=== PATIENT | female | born 1990 | race Caucasian/White ===

== ENCOUNTER → 2018-04-14 | Outpatient (CLI) | payer BC, MEDICAID | LOC: M SMT 08:06 | DX: Z13.79 Encounter for other screening for genetic and chromosomal anomalies (principal) | CPT/HCPCS: 36415 ==

== ENCOUNTER → 2018-05-21 | Outpatient (CLI) | payer BC ==
[2018-05-21 17:28] LABS: HEMATOCRIT 33.1 % (36.0-47.0); MEAN CORPUSCULAR HGB CONC 33.2 g/dl (32.0-36.5); MEAN CORPUSCULAR VOLUME 90.2 fl (80.0-96.0); PLATELET COUNT, AUTOMATED 221 10^3/uL (150-450); RED BLOOD COUNT 3.67 10^6/uL (4.00-5.40); RED CELL DISTRIBUTION WIDTH 13.2 % (11.5-14.5); WHITE BLOOD COUNT 14.3 10^3/uL (4.0-10.0)
[2018-05-21 18:00] LABS: GLUCOSE CHALLENGE TEST 1 HOUR 115 MG/DL (LESS THAN 140)
[2018-05-22 09:01] LABS: TYPE AND SCREEN 1 1
== END ==
LOC: M SMT 13:09
DX: Z36.89 Encounter for other specified antenatal screening (principal); Z3A.00 Weeks of gestation of pregnancy not specified
CPT/HCPCS: 82950

== ENCOUNTER → 2018-07-17 | Outpatient (REF) | payer BC | LOC: M LAB REF 12:56 | DX: Z34.83 Encounter for supervision of other normal pregnancy, third trimester (principal) | CPT/HCPCS: 87086 ==

== ENCOUNTER 2018-08-12 10:19 | Inpatient (IN) | payer BC ==
[2018-08-12] MEDS: LACTATED RINGER'S 1000 ML IV (10:30)
[2018-08-12 11:03] LABS: HEMOGLOBIN 11.2 g/dl (12.0-15.5); MEAN CORPUSCULAR HEMOGLOBIN 25.2 pg (27.0-33.0); MEAN CORPUSCULAR VOLUME 78.7 fl (80.0-96.0); PLATELET COUNT, AUTOMATED 289 10^3/uL (150-450); RED BLOOD COUNT 4.45 10^6/uL (4.00-5.40); RED CELL DISTRIBUTION WIDTH 15.2 % (11.5-14.5); WHITE BLOOD COUNT 17.1 10^3/uL (4.0-10.0)
[2018-08-12] MEDS ORDERED: FENTANYL 2MCG/ML ROPIVACAINE 0.2% IN 0.9% NACL 200ML IVBAG As Ordered (11:32)
[2018-08-12] MEDS: LR 1,000 ML IV (11:46)
[2018-08-12] MEDS ORDERED: OXYTOCIN 30 UNITS IN 0.9% NaCl 500ML IV BAG (J2590) As Ordered (15:49)
[2018-08-12] MEDS: OXYTOCIN DRIP 30 UNITS in APPROPRIATE DILUENT 1 EA IV (17:15)
[2018-08-12 17:27] LABS: CORD GAS ABE A -5.6; CORD GAS HCO3 A 22.7 MEQ/L; CORD GAS O2 SAT A 29.8 %; CORD GAS PCO2 A 55.8 mmHg; CORD GAS PH A 7.227 UNITS; CORD GAS PO2 A 18.3 mmHg; CORD GAS SBC A 18.4 MEQ/L; CORD GAS TCO2 A 24.4 MEQ/L
[2018-08-12 17:28] LABS: CORD GAS ABE V -5.1; CORD GAS HCO3 V 20.6 MEQ/L; CORD GAS O2 SAT V 53.7 %; CORD GAS PCO2 V 40.6 mmHg; CORD GAS PH V 7.323 UNITS; CORD GAS PO2 V 25.9 mmHg; CORD GAS SBC V 19.3 MEQ/L; CORD GAS TCO2 V 21.8 MEQ/L
[2018-08-12] MEDS ORDERED: MOM 30ML SUSPENSION UDC PO (17:45)
[2018-08-12] MEDS ORDERED: ACETAMINOPHEN 500 MG TAB PO (17:45)
[2018-08-12] MEDS ORDERED: METHYLERGONOVINE MALEATE 0.2 MG TAB PO (17:45)
[2018-08-12] MEDS ORDERED: ANUSOL HC CREAM 30GM TOP (17:45)
[2018-08-12] MEDS ORDERED: ONDANSETRON 4MG/2ML VIAL (J2405) IV (19:00)
[2018-08-12] MEDS ORDERED: ePHEDrine SULFATE 25 MG/5 ML(5MG/ML) SYRINGE IV (19:00)
[2018-08-12] MEDS ORDERED: EPIDURAL/PCA KEYS XX (19:00)
[2018-08-12] MEDS ORDERED: diphenhydrAMINE INJ 50MG/ML VIAL (J1200) IV (19:00)
[2018-08-12] MEDS ORDERED: NALOXONE INJ 0.4 MG/1 ML VIAL (J2310) IV (19:00)
[2018-08-12] MEDS: FENTANYL/ROPIVACAINE/NACL BAG 200 ML EPIDURAL (19:00)
[2018-08-12] MEDS ORDERED: REFRIGERATOR IV KEYS XX (19:00)
[2018-08-12] MEDS ORDERED: LACTATED RINGER'S 1000 ML IV (19:00)
[2018-08-12] MEDS ORDERED: EPIDURAL COMMENT XX (19:00)
[2018-08-12] MEDS: DIBUCAINE 1% OINTMENT 30GM TOP (21:04)
[2018-08-12] MEDS: IBUPROFEN 800 MG TAB PO (21:04)
[2018-08-13] MEDS: PRENATAL VITAMINS CHEWABLE TABLET PO (08:23)
[2018-08-13] MEDS: IBUPROFEN 800 MG TAB PO (09:41)
[2018-08-13 10:31] LABS: FETAL SCREEN PROF. 1 1
[2018-08-13] MEDS: RHOGAM 300 MCG (1500 IU) INJ (J2790) IM (11:42)
[2018-08-13] MEDS: DOCUSATE SODIUM 100 MG CAP PO (20:59)
[2018-08-14] MEDS: IBUPROFEN 800 MG TAB PO (05:00)
[2018-08-14] MEDS: PRENATAL VITAMINS CHEWABLE TABLET PO (08:13)
[2018-08-14] MEDS: MEASLES,MUMPS,RUBELLA VACCINE INJ (MMR-II) (90707) SC (11:24)
== END 2018-08-14 11:40 | disposition home or self-care (01) | DRG 560 ==
LOC: M LDI 10:19 → M OBS 19:28
PROVIDERS: Obstetrics & Gynecology
PROC: 10E0XZZ Delivery of Products of Conception, External Approach (ICD-10-PCS; principal; 2018-08-12)
PROC: 0KQM0ZZ Repair Perineum Muscle, Open Approach (ICD-10-PCS; 2018-08-12)
PROC: 10907ZC Drainage of Amniotic Fluid, Therapeutic from Products of Conception, Via Natural or Artificial Opening (ICD-10-PCS; 2018-08-12)
DX: O70.1 Second degree perineal laceration during delivery (principal); O77.0 Labor and delivery complicated by meconium in amniotic fluid; Z37.0 Single live birth; Z3A.39 39 weeks gestation of pregnancy; O69.82X0 Labor and delivery complicated by other cord entanglement, without compression, not applicable or unspecified

== ENCOUNTER → 2018-09-26 | Outpatient (CLI) | payer BC ==
[~2018-09-26] MED LIST: IBUP-1114 PO; MAPA500T2 PO; PRENTAB9 PO
--- NOTE | 2018-09-26 13:08 | REP ---
Focused left breast sonography: History: Solitary cyst left breast. Increase in size during nursing. No comparison imaging. Findings: Scanning through the left breast at the region of 2 o'clock palpable lump demonstrates a cluster of cysts with overall dimension of 3.8 x 3.2 x 2.4 cm. There is enhanced through transmission. No significant solid component is seen. The patient reports that this has been palpable since age 20 to 21 with some increase in size. Impression: Benign appearing cluster of cysts with an aggregate dimension of 3.8 cm in the 2 o'clock position of the left breast. BIRADS category 3 probably benign findings. Recommend follow up sonography after is finished or in 6 months. Electronically Signed by Fernando Díaz MD 09/26/2018 04:37 P
== END ==
LOC: M RAD 12:06
PROVIDERS: ATTEND Advanced Practice Midwife
DX: N63.20 Unspecified lump in the left breast, unspecified quadrant (principal)

== ENCOUNTER → 2019-11-19 | Outpatient (CLI) | payer OTHER, MEDICAID ==
--- NOTE | 2019-11-19 12:03 | REP ---
FOCUSED LEFT BREAST SONOGRAPHY: HISTORY: Left breast cyst. Palpable lump upper outer quadrant left breast. Comparison sonography is from September 26, 2018. This showed a 3.8 x 3.2 x 2.4 cm clustered microcyst lesion at 2-o'clock position in the left breast. At that time, history was given that the lesion had enlarged during . SONOGRAPHIC FINDINGS: Today's sonography in the 2-o'clock position, 2 cm from the nipple, demonstrates a 1.9 x 0.9 x 1.3 cm area of small microcysts in a grouping forming an oval-shaped lesion. The individual cysts are somewhat smaller, and the lesion is quite a bit smaller in overall dimension but otherwise appears morphologically similar. It is felt to be the same lesion, regressed in size since the September 26, 2018 study. No other sonographic finding. IMPRESSION: Oval-shaped subdermal benign-appearing clustered microcyst seen 1.3 cm in greatest diameter, previously 3.8 cm in diameter. BI-RADS category 2, benign findings. Clinical followup is advised.
== END ==
LOC: M WHC 09:50
PROVIDERS: ATTEND Advanced Practice Midwife
DX: N60.02 Solitary cyst of left breast (principal)

== ENCOUNTER → 2020-03-30 | Outpatient (CLI) | payer OTHER ==
[2020-03-30 09:47] VITALS: BP 122/70
--- NOTE | 2020-03-30 14:19 | REP ---
ULTRASOUND GUIDANCE FOR LEFT BREAST BIOPSY: Sonographic guidance was provided for Dr. Mendez who performed ultrasound guided biopsy of a complex cystic lesion in the region of 2-o'clock left breast. This was seen on the prior ultrasound of 11/19/2019. A needle is seen in the nodule.
--- NOTE | 2020-04-03 22:26 | ROOPDOC ---
[facility] Report Of Operation Report of Operation DATE OF PROCEDURE: 03/30/20 PREPROCEDURE DIAGNOSES: Left breast mass POSTPROCEDURE DIAGNOSES: same PROCEDURE: Ultrasound guided left breast mass biopsy with clip placement SURGEON: Jah Adan [employer] CLERK: ANESTHESIA: local ESTIMATED BLOOD LOSS: Approximately 1 mL. COMPLICATIONS: none REMARKS: clip seen on US DESCRIPTION OF PROCEDURE: Lidocaine 1% LOT [id number] Expiration 03/2023 Sodium Bicarbonate 8.4% LOT [id number] Expiration 03/2021 Hydromark clip LOT [id number] DExpiration 10/2022 REF SHAPE 4 Bx device: BARD [id number] x10 cm LOT [id number] Expiration 12/2022 Informed consent was obtained. The most common risk and possible complications including bleeding, hematoma, bruising, infection, injury to surrounding structures were explained to the patient and she expressed understanding. Patient was placed on the bed in the supine position. Appropriate time out was done stating patients name, date of , and the procedure to be performed. The left breast was prepped and draped in the usual fashion. The ultrasound was used to confirm the location of the lesion in the left breast at 2:00 2-3 centimeters from the nipple. Plain Lidocaine 1% and 8.4% sodium bicarbonate 10:1 mix was used to anesthetize the skin, the biopsy site and tissues along the anticipated biopsy tract. Small skin incision was made with blade number 11. BARD Marquee 14G cannula with introducer ([id number]) was inserted through the incision and advanced under the ultrasound guidance to position immediately adjacent to the lesion. Next, the introducer was removed and BARD Marquee 14G biopsy device was places in the cannula. Pre-biopsy imaging, and post-biopsy imaging were captured. Five good core biopsies were taken at various levels of the lesion. Specimen was placed in formaldehyde, labeled with appropriate biopsy site and patients name, and sent to pathology for evaluation. Next, the biopsy device was withdrawn and a clip introducer was inserted into the biopsy site via the cannula. The Hydromark clip was deployed under sonographic guidance. Post-clip placement image was captured. Manual pressure over the biopsy cavity and tract was held after the clip introducer was withdrawn. No bleeding was noted upon removal of the pressure. No post-biopsy mammogram of the left breast was done since patient did not have any previous mammograms. Postprocedure dressing was placed. Patient tolerated procedure well. Discharge instructions were discussed with the patient and she expressed understanding. JAH ADAN DO Apr 03, 2020 22:19
== END ==
LOC: M WHCPRO 07:53
PROVIDERS: ATTEND Surgery
DX: N60.22 Fibroadenosis of left breast (principal); N60.02 Solitary cyst of left breast

== ENCOUNTER → 2020-11-23 | Outpatient (CLI) | payer OTHER ==
--- NOTE | 2020-11-23 10:24 | REP ---
INDICATION: N63.21 6 MO F/U LT BREAST LESION 2:00 W/BENIGN BX. COMPARISON: Comparison targeted left breast sonography 19 November 2019 and 26 September 2018. Patient underwent ultrasound-guided needle biopsy in this area 2 o'clock left breast on 03/30/2020.. TECHNIQUE: Targeted left breast sonography. FINDINGS: Scanning in the 2 o'clock position of the left breast 2 cm from the nipple in the area of the previous biopsy site demonstrates a cluster of microcysts with overall dimensions 1.3 x 0.9 x 1.7. This virtually identical to its appearance on previous sonograms. No acoustic shadowing, architectural distortion, or soft tissue masslike component is seen. An echogenic marker clip is seen within the lesion. IMPRESSION: BI-RADS category 2 findings. Clustered microcyst lesion 2 o'clock position left breast morphologically similar although smaller than on the original ultrasound of September 26, 2018. This patient's estimated Tyrer-Cuzick lifetime risk assessment for breast cancer is 12.1%. <Electronically signed by Rj Díaz > 11/23/20 1023
== END ==
LOC: M WHC 08:52
PROVIDERS: ATTEND Surgery
DX: N63.21 Unspecified lump in the left breast, upper outer quadrant (principal)

== ENCOUNTER → 2021-01-04 | Outpatient (REF) | payer OTHER ==
[2021-01-04 16:03] LABS: CHLAMYDIA DNA AMPLIFICATION NEGATIVE (NEGATIVE); GC DNA AMPLIFICATION NEGATIVE (NEGATIVE)
== END ==
LOC: M SFHCWAGY 13:28
PROVIDERS: ATTEND Advanced Practice Midwife
DX: Z11.3 Encounter for screening for infections with a predominantly sexual mode of transmission (principal); Z12.4 Encounter for screening for malignant neoplasm of cervix